=== PATIENT | female | born 1985 | race Caucasian/White ===

== ENCOUNTER 2020-01-25 21:37 | Emergency (ER) | payer SELFPAY ==
--- NOTE | 2020-01-25 21:54 | EDM.PDOC ---
ED HPI GENERAL MEDICAL PROBLEM - General Chief Complaint: ENT Problem Stated Complaint: COLD SYMPTOMS,SORE THROAT Time Seen by Provider: 01/25/20 21:49 Source of Information: Reports: Patient - History of Present Illness INITIAL COMMENTS - FREE TEXT/NARRATIVE: The patient is a 34-year-old female who presents to the ER because she is convinced she has the coronavirus. She has not traveled anywhere, she has not been in contact with any foreigners, but over the last few days she has had a lot of nasal congestion, harsh dry cough and hurts to cough, fevers, generalized myalgias, a sore throat, the left side of her neck is tender. She is also sleeping a lot. No other acute complaints. throat Pain Score (Numeric/FACES): 10 - Related Data Allergies Allergy/AdvReac Type Severity Reaction Status Date / Time Penicillins Allergy Hives Verified 01/25/20 21:46 Home Meds: Home Meds . [No Known Home Meds] 01/25/20 [History] ED ROS ENT - Review of Systems Review Of Systems: See Below (Positive for fevers, positive for myalgias, positive for cough, positive for sinus congestion and drainage, positive for sore throat, all other Positives and pertinent negatives as per HPI. All other pertinent systems were reviewed and are negative) ED EXAM, ENT - Physical Exam Exam: See Below Text/Narrative:: Constitutional: No acute distress, Non-toxic appearance, harsh dry cough and sounds extremely nasally congested. HEENT: Normocephalic, Atraumatic, pupils equal round reactive to light, EOMI, nasal turbinates are congested bilaterally, laryngitis present, oropharynx clear , tongue uvular midline, no oral lesions are noted, no retropharyngeal or peritonsillar abscess, tongue uvular midline Neck: Normal range of motion, No stridor, trachea midline, minimal lymphadenopathy at the left anterior cervical chain Respiratory: No respiratory distress, No tachypnea, lungs are clear without wheezes, rales or rhonchi Cardiovascular: Regular rate and rhythm Gastrointestinal: Deferred Genital / Urinary: Deferred Musculoskeletal: All four extremities present and atraumatic Back: FROM Integument: Warm, Dry, Color is ethnicity appropriate, No rash. Neuro: Alert, Awake, No focal deficits noted Psych: Affect, Judgement, mood normal Course - Vital Signs Text/Narrative:: History and exam are consistent with a viral syndrome. Education was provided and the patient will be given a prescription for Tessalon Perles. Last Recorded V/S: Last Vital Signs Temp 35.8 C L 01/25/20 21:41 Pulse 98 01/25/20 21:41 Resp 20 01/25/20 21:41 BP 104/77 01/25/20 21:41 Pulse Ox 99 01/25/20 21:41 Departure - Departure Time of Disposition: 21:53 Disposition: Home, Self-Care 01 Condition: Good Clinical Impression: Viral syndrome - Discharge Information Referrals: PCP,None [Primary Care Provider] - Additional Instructions: VIRAL SYNDROME This appears to be a viral syndrome. They are highly common and variable, causing fevers, colds, coughs, headaches, vomiting, diarrhea, etc. Antibiotics don't work on viruses, and they need to run their course. On average these last 7-10 days, depending upon the virus. There are some that even last up to several weeks. Rest, drink plenty of clear fluids, especially water. You want our urine to be clear to a light yellow. Ibuprofen 800 mg and Tylenol 1000 mg may be taken at the same time every 6 hours as needed for fevers and discomfort. Upper respiratory congestion and sore throats can be improved with cool liquids , humidifiers, cough drops with menthol, honey, tea with honey, and over-the- counter decongestants. Return to the ER if you develop difficulty breathing, or any other concerns. Sepsis Event Note - Evaluation Sepsis Screening Result: No Definite Risk - Focused Exam Vital Signs: Vital Signs Temp Pulse Resp BP Pulse Ox 01/25/20 21:41 35.8 C L 98 20 104/77 99 Date Exam was Performed: 01/25/20 Time Exam was Performed: 21:48
== END 2020-01-25 22:02 | disposition home or self-care (01) ==
LOC: MW.ED 21:37
CPT/HCPCS: 99282; 99283

== ENCOUNTER 2020-09-28 22:26 | Emergency (ER) | payer OTHER ==
[2020-09-29] MEDS ORDERED: Acetaminophen/HYDROcodone 325-5 MG Tab PO ONE (00:04)
[2020-09-29] MEDS ORDERED: Lidocaine 5% Oint 35.44 GM Tube TOP ONE (00:04)
[2020-09-29] MEDS ORDERED: Lidocaine 2% Jelly 30 ML Tube SCH (00:45)
--- NOTE | 2020-09-29 04:58 | EDM.PDOC ---
ED HPI GENERAL MEDICAL PROBLEM - General Chief Complaint: Back Pain or Injury Stated Complaint: BACK PAIN Time Seen by Provider: 09/28/20 23:30 - History of Present Illness INITIAL COMMENTS - FREE TEXT/NARRATIVE: CHIEF COMPLAINT(S): Back pain HISTORY OF PRESENT ILLNESS: This is a 34-year-old woman without any significant past medical history who comes to the emergency department with a chief complaint of back pain. 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 She denies any injury except for lifting this entertainment center. She denies any urinary incontinence, bowel incontinence, decrease sensation when wiping after using restroom, fever, chills, history of IV drug use. She states that she has never had pain like this before. She denies any numbness or tingling of her lower extremities and is able to ambulate however she does have pain in her lower back. She denies any abdominal pain, chest pain, shortness of breath. She denies any other injury. She states that she took Tylenol without any relief. REVIEW OF SYSTEMS: Constitutional: Denies fever, chills. Eyes: Denies eye pain Ears, Nose, Mouth, & Throat: Denies earache Cardiovascular: Denies chest pain Respiratory: Denies shortness of breath Gastrointestinal: Denies Nausea, vomiting, diarrhea, hematochezia. Bowel inco ntinence Genitourinary: Denies hematuria urinary incontinence MSK: Positive for lower back pain. Neurological: Denies blurred vision, numbness, tingling, weakness Psychiatric: Denies depression PAST MEDICAL HISTORY: As per history of present illness and as reviewed below otherwise noncontributory. SURGICAL HISTORY: As per history of present illness and as reviewed below otherwise noncontributory. LMP: September 07, 2020 SOCIAL HISTORY: As per history of present illness and as reviewed below otherwise noncontributory. FAMILY HISTORY: As per history of present illness and as reviewed below o therwise noncontributory. EXAMINATION OF ORGAN SYSTEMS/BODY AREAS: Constitutional: Blood pressure was 130/70, heart rate 107, respiratory rate 16 with an oxygen saturation 97% on room air. Temperature 36.2 General: Overall well-appearing woman who is in no acute distress. Psychiatric: Appropriate mood and affect. Eyes: No scleral icterus or conjunctival erythema ENMT: Moist mucous membranes. No pharyngeal erythema Cardiovascular: Regular, rate, and rhythm. No gallops, murmurs, or rubs. Bilateral upper extremity pulses symmetric and intact. No peripheral edema. No JVD. Respiratory: Lungs clear to auscultation bilaterally. No wheezes, rales, or rhonchi. Gastrointestinal: Soft, non-tender, non-distended. Normoactive bowel sounds Genitourinary: No suprapubic tenderness Musculoskeletal: Normal range of motion. There is no cervical, thoracic, or lumbar midline spinal tenderness. There is paraspinal tenderness in the lumbar region and along the sacroiliac joints. There was negative straight leg and cross leg test. The patient does have distal sensation between the toes distally, along the heel and laterally. Patient has full range of motion of her lower extremities and is able to ambulate. Skin: No lesions or abrasions. Neurological: Alert, GCS 15 strength and sensation grossly intact MEDICAL DECISION MAKING AND COURSE IN THE ED WITH INTERPRETATION/REVIEW OF DIAG NOSTIC STUDIES: This is a 34-year-old woman and without any significant past medical history who comes to the emergency department with lower lumbar back pain along the sacroiliac joints who overall appears well and has no red flag symptoms. At this time I did discuss with patient I would like to get a lumbar spine and sacroiliac joint x-ray. I discussed with her that I did provide her with lidocaine cream and a tablet of [place]. We will obtain a hCG prior to imaging. While taking care of a critical care patient, the RN notified me that the patient had left without completing treatment. I was unable to speak to the patient prior to the patient leaving. DISPOSITION: The patient left without completing treatment CONDITION: Fair PROCEDURES: None FINAL IMPRESSION(S)/DIAGNOSES: 1. Acute lower back pain Ranjit Chen M.D. Lower Back Pain Score (Numeric/FACES): 6 - Related Data Allergies Allergy/AdvReac Type Severity Reaction Status Date / Time Penicillins Allergy Hives Verified 09/28/20 23:22 Home Meds: Home Meds . 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: Psychiatric History: Reports: Bipolar - Infectious Disease History Infectious Disease History: Reports: Chicken Pox - Past Surgical History HEENT Surgical History: Reports: Adenoidectomy, Tonsillectomy Female Surgical History: Reports: Section Social & Family History - Family History Family Medical History: Noncontributory - Caffeine Use Caffeine Use: Reports: Coffee, Energy Drinks, Soda - Recreational Drug Use Recreational Drug Use: Yes Drug Use in Last 12 Months: No Recreational Drug Type: Reports: Marijuana/Hashish ED ROS GENERAL - Review of Systems Review Of Systems: See Below ED EXAM, GENERAL - Physical Exam Exam: See Below Course - Vital Signs Last Recorded V/S: Last Vital Signs Temp 36.2 C 09/28/20 23:19 Pulse 107 H 09/28/20 23:19 Resp 16 09/28/20 23:19 BP 130/70 09/28/20 23:19 Pulse Ox 97 09/28/20 23:19 - Orders/Labs/Meds Labs: Laboratory Tests 09/29/20 Range/Units 00:20 Urine HCG, Qual NEGATIVE (NEGATIVE) Meds: Medications Discontinued Medications Generic Name Dose Route Start Last Admin Trade Name Freq PRN Reason Stop Dose Admin Hydrocodone Bitart/Acetaminophen 1 tab 09/29/20 00:04 09/29/20 00:11 [place] 325-5 Mg PO 09/29/20 00:05 1 tab ONETIME ONE Administration Lidocaine HCl 50 gm 09/29/20 00:04 09/29/20 00:35 Lidocaine 5% TOP 09/29/20 00:05 Not Given ONETIME ONE Lidocaine HCl 5 ml 09/29/20 00:45 09/29/20 00:41 Xylocaine 2% Jelly .XX 1 applic ASDIRECTED MEHREEN Administration Departure - Departure Time of Disposition: 01:12 Disposition: Eloped 07 Condition: Fair Clinical Impression: Back pain Qualifiers: Back pain location: low back pain Chronicity: acute Back pain laterality: bilateral Sciatica presence: without sciatica Qualified Code(s): M54.5 - Low back pain - Discharge Information *PRESCRIPTION DRUG MONITORING PROGRAM REVIEWED*: No *COPY OF PRESCRIPTION DRUG MONITORING REPORT IN PATIENT VIRI: No Referrals: Collin Maloney MD [Primary Care Provider] - Forms: ED Department Discharge Sepsis Event Note (ED) - Evaluation Sepsis Screening Result: No Definite Risk - Focused Exam Vital Signs: Vital Signs Temp Pulse Resp BP Pulse Ox 09/28/20 23:19 36.2 C 107 H 16 130/70 97
== END 2020-09-29 01:12 | disposition left against medical advice (07) ==
LOC: MW.ED 22:26
DX: M54.5 Low back pain (principal); Z88.0 Allergy status to penicillin
CPT/HCPCS: 81025; 99283; A9270

== ENCOUNTER 2020-10-04 13:57 | Emergency (ER) | payer OTHER | END 2020-10-04 19:25 | disposition left against medical advice (07) | LOC: MW.ED 13:57 | DX: Z53.21 Procedure and treatment not carried out due to patient leaving prior to being seen by health care provider (principal) ==

== ENCOUNTER 2020-10-07 04:11 | Emergency (ER) | payer OTHER ==
[2020-10-07] MEDS ORDERED: predniSONE 20 MG Tab PO ONE (04:44)
[2020-10-07] MEDS ORDERED: Diazepam 2 MG Tab PO ONE (04:44)
--- NOTE | 2020-10-07 04:50 | EDM.PDOC ---
ED HPI GENERAL MEDICAL PROBLEM - General Chief Complaint: Back Pain or Injury Stated Complaint: BACK PAIN Time Seen by Provider: 10/07/20 04:44 - History of Present Illness INITIAL COMMENTS - FREE TEXT/NARRATIVE: History of present illness: [] The patient is lifting her entertainment center to move it 7 days ago and she felt a pop in her right back and has severe pain since. Worse with movement. Is better when she still. It is sharp. It radiates down her right leg and she has feeling she has a herniated disc. She had prior neck injury and chronic numbness in her upper extremities. Review of systems: As per history of present illness and below otherwise all systems reviewed and negative. Past medical history: As per history of present illness and as reviewed below otherwise noncontributory. Surgical history: As per history of present illness and as reviewed below otherwise noncontributory. Social history: No reported history of drug or alcohol abuse. Family history: As per history of present illness and as reviewed below otherwise noncontributory. Physical exam: Constitutional - well developed, well-nourished and in no acute distress HEENT - normocephalic, no evidence of trauma - external nose and mouth normal - no mass in neck and no JVD - mucosae moist EYES - full EOM, PERRL, no icterus - no evidence of inflammation, injection, or drainage Respiratory - no respiratory distress, equal bilateral expansion Musculoskeletal -tender in the right paraspinous muscles in the lower lumbar area straight leg raise right causes pain in the right side of her back straight leg raise left because of pain in the center of her back no gross deformity of long bones or joints -there was no tenderness, swelling or edema Neurologic - Alert and oriented times four - CN II-XII grossly intact - motor se nsory and coordination symmetrically normal Psychiatric - appropriate mood and affect with normal thought content Hematologic - No petechiae or purpura - mucosa appropriate color and sclera not pale - normal nail bed color and refill Integument - no rash or evidence of trauma - normal turgor Diagnostics: [] Therapeutics: [] Impression: [] Plan: [] Definitive disposition and diagnosis as appropriate pending reevaluation and review of above. lower back Pain Score (Numeric/FACES): 5 - Related Data Allergies Allergy/AdvReac Type Severity Reaction Status Date / Time ketorolac [From Toradol] Allergy Tachycardia Verified 10/07/20 04:35 Penicillins Allergy Hives Verified 09/28/20 23:22 tramadol Allergy Tachycardia Verified 10/07/20 04:35 Home Meds: Home Meds diazePAM [Valium] 5 mg PO TID PRN #15 tab 10/07/20 [Rx] methylPREDNISolone [Medrol Dose Pack] 4 mg PO DAILY #21 tab 10/07/20 [Rx] Past Medical History - Past Health History Medical/Surgical History: Denies Medical/Surgical History Cardiovascular History: Reports: None Respiratory History: Reports: None Genitourinary History: Reports: None [facility] History: Reports: Musculoskeletal History: Reports: None Neurological History: Reports: None Psychiatric History: Reports: Bipolar Endocrine/Metabolic History: Reports: None Oncologic (Cancer) History: Reports: None Dermatologic History: Reports: None - Infectious Disease History Infectious Disease History: Reports: Chicken Pox - Past Surgical History Head Surgeries/Procedures: Reports: None HEENT Surgical History: Reports: Adenoidectomy, Tonsillectomy GI Surgical History: Reports: Appendectomy Female Surgical History: Reports: Section Social & Family History - Family History Family Medical History: No Pertinent Family History - Tobacco Use Tobacco Use Status *Q: Current Every Day Tobacco User Years of Tobacco use: 13 Packs/Tins Daily: 1 - Caffeine Use Caffeine Use: Reports: Coffee, Energy Drinks, Soda - Recreational Drug Use Recreational Drug Use: Yes Recreational Drug Type: Reports: Marijuana/Hashish ED ROS GENERAL - Review of Systems Review Of Systems: Comprehensive ROS is negative, except as noted in HPI. ED EXAM, GENERAL - Physical Exam Exam: See Below Free Text/Narrative:: The physical exam is in the HPI Course - Vital Signs Last Recorded V/S: Last Vital Signs Temp 36.3 C 10/07/20 04:35 Pulse 125 H 10/07/20 04:35 Resp 18 10/07/20 04:35 BP 125/66 10/07/20 04:35 Pulse Ox 98 10/07/20 04:35 - Orders/Labs/Meds Orders: Active Orders 24 hr Category Date Time Status diazePAM [Valium] Med 10/07/20 04:44 Once 5 mg PO ONETIME ONE predniSONE Med 10/07/20 04:44 Once 60 mg PO ONETIME ONE Departure - Departure Time of Disposition: 05:10 Disposition: Home, Self-Care 01 Condition: Good Clinical Impression: Low back strain - Discharge Information Instructions: Lumbosacral Strain Referrals: Collin Maloney MD [Primary Care Provider] - Additional Instructions: If you have excruciating pain it is getting worse or you lose control of your bowel bladder or movement or sensation in your lower extremities you should be seen. If the latter happen you should be seen immediately in the emergency room otherwise follow-up with primary care or orthopedics and have an MRI if you are getting worse. [facility] - [facility] [address], [address] [place] [address] The following information is given to patients seen in the emergency department who are being discharged to home. This information is to outline your options for follow-up care. We provide all patients seen in our emergency department with a follow-up referral. The need for follow-up, as well as the timing and circumstances, are variable depending upon the specifics of your emergency department visit. If you don't have a primary care physician on staff, we will provide you with a referral. We always advise you to contact your personal physician following an emergency department visit to inform them of the circumstance of the visit and for follow-up with them and/or the need for any referrals to a consulting specialist. The emergency department will also refer you to a specialist when appropriate. This referral assures that you have the opportunity for follow-up care with a specialist. All of these measure are taken in an effort to provide you with optimal care, which includes your follow-up. Under all circumstances we always encourage you to contact your private physician who remains a resource for coordinating your care. When calling for follow-up care, please make the office aware that this follow-up is from your recent emergency room visit. If for any reason you are refused follow-up, please contact the [facility] Emergency Department at and asked to speak to the emergency department charge nurse. Sepsis Event Note (ED) - Evaluation Sepsis Screening Result: No Definite Risk - Focused Exam Vital Signs: Vital Signs Temp Pulse Resp BP Pulse Ox 10/07/20 04:35 36.3 C 125 H 18 125/66 98 - My Orders Last 24 Hours: My Active Orders 10/07/20 04:44 diazePAM [Valium] 5 mg PO ONETIME ONE predniSONE 60 mg PO ONETIME ONE - Assessment/Plan Last 24 Hours: My Active Orders 10/07/20 04:44 diazePAM [Valium] 5 mg PO ONETIME ONE predniSONE 60 mg PO ONETIME ONE
== END 2020-10-07 05:04 | disposition home or self-care (01) ==
LOC: MW.ED 04:11
DX: S39.012A Strain of muscle, fascia and tendon of lower back, initial encounter (principal); F17.210 Nicotine dependence, cigarettes, uncomplicated; Z88.6 Allergy status to analgesic agent; Z88.5 Allergy status to narcotic agent; Z88.0 Allergy status to penicillin; X58.XXXA Exposure to other specified factors, initial encounter
CPT/HCPCS: 99283; A9270; 99282

== ENCOUNTER 2020-11-25 07:35 | Emergency (ER) | payer SELFPAY ==
[2020-11-25] MEDS ORDERED: OLANZapine 5 MG Tab PO ONE (07:42)
--- NOTE | 2020-11-25 07:48 | EDM.PDOC ---
ED HPI GENERAL MEDICAL PROBLEM - General Time Seen by Provider: 11/25/20 07:40 - History of Present Illness INITIAL COMMENTS - FREE TEXT/NARRATIVE: Patient is a 35-year-old female with a history of extensive chronic pain issues currently smokes weed but takes no regular medications. She has a history of bipolar disorder and has had an episode of self-harm and suicide attempt in the past a couple years ago. Patient states tearfully that she is tired of being miserable in pain and pain all the time this morning she "went off" on her felt like if she were she would not be in pain anymore and so she intentionally cut her left wrist with the goal of taking her life. 911 was called by family. Police and EMS arrived and the patient was initially quite uncooperative and combative but on arrival to the ER here is calm, though tearful, and cooperative. She reports ongoing issues with chronic pain in her back her face and her shoulder but denies any other medical complaints. general Pain Score (Numeric/FACES): 8 - Related Data Allergies Allergy/AdvReac Type Severity Reaction Status Date / Time ketorolac [From Toradol] Allergy Tachycardia Verified 11/25/20 07:50 Penicillins Allergy Hives Verified 11/25/20 07:50 tramadol Allergy Tachycardia Verified 11/25/20 07:50 Home Meds: Home Meds . 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: Musculoskeletal History: Reports: None Neurological History: Reports: None Psychiatric History: Reports: Bipolar Endocrine/Metabolic History: Reports: None Oncologic (Cancer) History: Reports: None Dermatologic History: Reports: None - Infectious Disease History Infectious Disease History: Reports: Chicken Pox - Past Surgical History Head Surgeries/Procedures: Reports: None HEENT Surgical History: Reports: Adenoidectomy, Tonsillectomy GI Surgical History: Reports: Appendectomy Female Surgical History: Reports: Section Social & Family History - Family History Family Medical History: No Pertinent Family History - Caffeine Use Caffeine Use: Reports: Coffee, Energy Drinks, Soda ED ROS GENERAL - Review of Systems Review Of Systems: See Below Free Text/Narrative/Comment: General: No fever. Skin: No rash. Eyes: No vision problems. ENT: No sore throat. Neck: No neck stiffness. Respiratory: No shortness of breath. Cardiac: No chest pain. Gastrointestinal: No nausea, vomiting or abdominal pain. Psych: Per HPI Musculoskeletal: Per HPI Neurologic: No headache. ED EXAM, GENERAL - Physical Exam Exam: See Below Free Text/Narrative:: General Appearance: No acute distress, appears comfortable Skin: No rash HEENT: Normocephalic/atraumatic, sclera anicteric, mucous membranes moist Neck: Normal range of motion Chest and Lungs: Normal work of breathing Cardiovascular: Intact distal perfusion Musculoskeletal: 5 cm laceration of the anterior aspect of the left wrist essentially overlying the proximal wrist crease no tendon exposure no active bleeding sensation in the hand is intact there is a 2+ distal radial pulse strength in all digits in the hand is intact Neurologic: Awake, alert, no obvious deficits, moving all extremities Psychiatric: Tearful, depressed mood, appropriate affect, normal eye contact ED GENERAL MEDICAL PROCEDURES - Additional/Other Procedure(s) Other (Free Text) Procedure(s): Laceration Repair Procedure Location: Left anterior wrist Length: 5 cm Suture size and type: 5-0 nylon Number of sutures: 9 Complexity: Simple Time out: Yes, confirmed patient, place, procedure correct Consent: Verbal Suture technique: Simple interrupted Procedure: The wound was irrigated copiously with normal saline or sterile water. Close inspection revealed no evidence for retained foreign bodies. Anesthesia was achieved using lidocaine. Sutures were placed using the above technique with approximation of the wound edges. Sterile dressing was applied to the closed wound. Complications: None Performed by: Woo Vaughan MD #1 Interpretation EKG Date: 11/25/20 Time: 07:50 EKG Interpretation Comments: Normal sinus rhythm rate of 77 normal intervals and axis QTC 411 no acute ischemia Course - Vital Signs Last Recorded V/S: Last Vital Signs Temp 98.7 F 11/25/20 07:37 Pulse 89 11/25/20 09:07 Resp 20 11/25/20 09:07 BP 136/76 11/25/20 09:07 Pulse Ox 97 11/25/20 09:07 - Orders/Labs/Meds Orders: Active Orders 24 hr Category Date Time Status EKG Documentation Completion [RC] STAT Care 11/25/20 07:42 Active COVID-19/FLU A+B [MOLEC] Stat Lab 11/25/20 08:48 Received Labs: Laboratory Tests 11/25/20 11/25/20 11/25/20 Range/Units 07:45 07:45 08:27 WBC 10.31 (4.0-11.0) K/uL RBC 5.10 (4.30-5.90) M/uL Hgb 14.3 (12.0-16.0) g/dL Hct 43.3 (36.0-46.0) % MCV 84.9 (80.0-98.0) fL MCH 28.0 (27.0-32.0) pg MCHC 33.0 (31.0-37.0) g/dL RDW Std Deviation 41.3 (28.0-62.0) fl RDW Coeff of Alvin 13 (11.0-15.0) % Plt Count 266 (150-400) K/uL MPV 10.70 (7.40-12.00) fL Neut % (Auto) 56.4 (48.0-80.0) % Lymph % (Auto) 33.0 (16.0-40.0) % Terry % (Auto) 6.7 (0.0-15.0) % Eos % (Auto) 3.1 (0.0-7.0) % Baso % (Auto) 0.8 (0.0-1.5) % Neut # (Auto) 5.8 H (1.4-5.7) K/uL Lymph # (Auto) 3.4 H (0.6-2.4) K/uL Terry # (Auto) 0.7 (0.0-0.8) K/uL Eos # (Auto) 0.3 (0.0-0.7) K/uL Baso # (Auto) 0.1 (0.0-0.1) K/uL Nucleated RBC % 0.0 /100WBC Nucleated RBCs # 0 K/uL Sodium 138 (136-145) mmol/L Potassium 3.9 (3.5-5.1) mmol/L Chloride 104 (98-107) mmol/L Carbon Dioxide 25.9 (21.0-32.0) mmol/L BUN 11 (7.0-18.0) mg/dL Creatinine 1.0 (0.6-1.0) mg/dL Est Cr Clr Drug Dosing 83.62 mL/min Estimated GFR (MDRD) > 60.0 ml/min Glucose 93 (74-106) mg/dL Calcium 9.3 (8.5-10.1) mg/dL Total Bilirubin 0.4 (0.2-1.0) mg/dL AST 10 L (15-37) IU/L ALT 15 (14-63) IU/L Alkaline Phosphatase 49 (46-116) U/L Total Protein 6.7 (6.4-8.2) g/dL Albumin 3.7 (3.4-5.0) g/dL Globulin 3.0 (2.6-4.0) g/dL Albumin/Globulin Ratio 1.2 (0.9-1.6) Urine HCG, Qual NEGATIVE (NEGATIVE) Urine Opiates Screen (NEGATIVE) Ur Oxycodone Screen (NEGATIVE) Urine Methadone Screen (NEGATIVE) Ur Barbiturates Screen (NEGATIVE) Ur Phencyclidine Scrn (NEGATIVE) Ur Amphetamine Screen (NEGATIVE) U Methamphetamines Scrn (NEGATIVE) U Benzodiazepines Scrn (NEGATIVE) U Cocaine Metab Screen (NEGATIVE) U Marijuana (THC) Screen (NEGATIVE) Ethyl Alcohol < 3.0 mg/dL 11/25/20 Range/Units 08:27 WBC (4.0-11.0) K/uL RBC (4.30-5.90) M/uL Hgb (12.0-16.0) g/dL Hct (36.0-46.0) % MCV (80.0-98.0) fL MCH (27.0-32.0) pg MCHC (31.0-37.0) g/dL RDW Std Deviation (28.0-62.0) fl RDW Coeff of Alvin (11.0-15.0) % Plt Count (150-400) K/uL MPV (7.40-12.00) fL Neut % (Auto) (48.0-80.0) % Lymph % (Auto) (16.0-40.0) % Terry % (Auto) (0.0-15.0) % Eos % (Auto) (0.0-7.0) % Baso % (Auto) (0.0-1.5) % Neut # (Auto) (1.4-5.7) K/uL Lymph # (Auto) (0.6-2.4) K/uL Terry # (Auto) (0.0-0.8) K/uL Eos # (Auto) (0.0-0.7) K/uL Baso # (Auto) (0.0-0.1) K/uL Nucleated RBC % /100WBC Nucleated RBCs # K/uL Sodium (136-145) mmol/L Potassium (3.5-5.1) mmol/L Chloride (98-107) mmol/L Carbon Dioxide (21.0-32.0) mmol/L BUN (7.0-18.0) mg/dL Creatinine (0.6-1.0) mg/dL Est Cr Clr Drug Dosing mL/min Estimated GFR (MDRD) ml/min Glucose (74-106) mg/dL Calcium (8.5-10.1) mg/dL Total Bilirubin (0.2-1.0) mg/dL AST (15-37) IU/L ALT (14-63) IU/L Alkaline Phosphatase (46-116) U/L Total Protein (6.4-8.2) g/dL Albumin (3.4-5.0) g/dL Globulin (2.6-4.0) g/dL Albumin/Globulin Ratio (0.9-1.6) Urine HCG, Qual (NEGATIVE) Urine Opiates Screen POSITIVE (NEGATIVE) Ur Oxycodone Screen NEGATIVE (NEGATIVE) Urine Methadone Screen NEGATIVE (NEGATIVE) Ur Barbiturates Screen NEGATIVE (NEGATIVE) Ur Phencyclidine Scrn NEGATIVE (NEGATIVE) Ur Amphetamine Screen NEGATIVE (NEGATIVE) U Methamphetamines Scrn POSITIVE (NEGATIVE) U Benzodiazepines Scrn NEGATIVE (NEGATIVE) U Cocaine Metab Screen NEGATIVE (NEGATIVE) U Marijuana (THC) Screen POSITIVE (NEGATIVE) Ethyl Alcohol mg/dL Meds: Medications Discontinued Medications Generic Name Dose Route Start Last Admin Trade Name Freq PRN Reason Stop Dose Admin Diphenhydramine HCl 50 mg 11/25/20 08:48 11/25/20 08:55 Benadryl IM 11/25/20 08:49 50 mg ONETIME ONE Administration Haloperidol Lactate 10 mg 11/25/20 08:48 11/25/20 08:54 Haldol IM 01/02/21 08:49 10 mg ONETIME ONE Administration Lidocaine/Epinephrine 20 ml 11/25/20 07:51 11/25/20 07:59 Xylocaine 1% With Epinephrine 1:100,000 INJECT 11/25/20 07:52 20 ml ONETIME ONE Administration Lorazepam 2 mg 11/25/20 08:48 11/25/20 08:53 Ativan IM 11/25/20 08:49 2 mg ONETIME ONE Administration Olanzapine 5 mg 11/25/20 07:42 11/25/20 07:48 Zyprexa PO 11/25/20 07:43 5 mg ONETIME ONE Administration Departure - Departure Time of Disposition: 09:05 Disposition: DC/Tfer to Psych Hosp/Unit 65 Condition: Fair Clinical Impression: Suicide attempt by cutting of wrist, Laceration of wrist without complication - Discharge Information *PRESCRIPTION DRUG MONITORING PROGRAM REVIEWED*: Not Applicable *COPY OF PRESCRIPTION DRUG MONITORING REPORT IN PATIENT VIRI: Not Applicable Instructions: Sutured Wound Care Referrals: PCP,Unknown [Primary Care Provider] - Additional Instructions: Your stitches need to be removed in 7 days. The following information is given to patients seen in the emergency department who are being discharged to home. This information is to outline your options for follow-up care. We provide all patients seen in our emergency department with a follow-up referral. The need for follow-up, as well as the timing and circumstances, are variable depending upon the specifics of your emergency department visit. If you don't have a primary care physician on staff, we will provide you with a referral. We always advise you to contact your personal physician following an emergency department visit to inform them of the circumstance of the visit and for follow-up with them and/or the need for any referrals to a consulting specialist. The emergency department will also refer you to a specialist when appropriate. This referral assures that you have the opportunity for follow-up care with a specialist. All of these measure are taken in an effort to provide you with optimal care, which includes your follow-up. Under all circumstances we always encourage you to contact your private physician who remains a resource for coordinating your care. When calling for follow-up care, please make the office aware that this follow-up is from your recent emergency room visit. If for any reason you are refused follow-up, please contact the [facility] Emergency Department at and asked to speak to the emergency department charge nurse. Critical Care Note - Critical Care Note Total Time (mins): 45 Comments: Patient presented in acute psychiatric crisis she required multiple interactions for attempted behavior de-escalation she then required restraint and sedation for patient and staff safety. Sepsis Event Note (ED) - Focused Exam Vital Signs: Vital Signs Temp Pulse Resp BP Pulse Ox 11/25/20 09:07 89 20 136/76 97 11/25/20 07:37 98.7 F 82 16 133/89 97 - My Orders Last 24 Hours: My Active Orders 11/25/20 07:42 EKG Documentation Completion [RC] STAT 11/25/20 08:48 COVID-19/FLU A+B [MOLEC] Stat - Assessment/Plan Last 24 Hours: My Active Orders 11/25/20 07:42 EKG Documentation Completion [RC] STAT 11/25/20 08:48 COVID-19/FLU A+B [MOLEC] Stat Assessment:: 35-year-old female presenting with what appears to be a long history of bipolar disorder not currently on medication depression and chronic pain presenting after a suicide attempt cutting her left wrist. There is no sign of deep structure injury. Patient is tearful but appropriate and cooperative here. I offered, and the patient accepted, some medication to help her calm down and we will give a dose of oral Zyprexa. Tetanus status will be updated as needed EKG CBC CMP alcohol level UDS and Covid screen pending and will discuss with them by psychiatric facilities. Given her suicide attempt this morning her ongoing issues with depression and the lack of any current mental health follow-up I think admission for acute psychiatric crisis is appropriate. 0759: Initially the patient nodded agreement to psychiatric transfer. She now says that she does not want to go because she does not need to. "I've been managing my bipolar disorder just fine. I don't need all those medications. They don't help me. That's why I took myself off of all those medications down in [place]." "I just tell them what they want to hear and they let me go." I told the patient that given her suicide attempt this AM she does require psychiatric transfer. She stated that "I understand if that's your policy. Well, I guess there's no point in talking to you anymore." Patient refuses Tdap update. Eye contact now quite poor and patient does not respond to my verbal interaction. 0840: Patient has started to become verbally aggressive towards staff. She has made several threatening moves towards nursing staff. She has ripped out her IV. I have concerns regarding a potential flight risk or injury to staff. PD called to assist. 0850: Patient has become increasingly verbally aggressive she is threatened to leave police had to handcuff her to the bed. She is now attempting to leave she is yelling at police telling multiple people to "shut the fuck up." "Fuck off." "What are you going to fucking do about it?" and similar statements. I am concerned that she is continuing to escalate. She is not responding to multiple attempts to redirect. She is not responding to police standby. I am also concerned that she may further injure herself including dislodging her stitches. For patient and staff safety the patient will be given Haldol, Ativan and Benadryl by IM injection. 0855: The patient's labs are unremarkable. The patient is medically clear for psychiatric transfer. I contacted [facility]. However, they are at capacity. I contacted [facility] and spoke to Dr. Lang. She has accepted the patient for transfer. 0905: The patient had some recurrent bleeding from her left wrist. On reassessment all stitches are intact. Bleeding was controlled. There is a small hematoma that has formed on the ulnar side. This does not require any in tervention and should resorb or drain on it's own. Stitches will need to be removed in 7 days. 0920: The patient is now resting comfortably s/p medications. She is stable for transfer.
[2020-11-25] MEDS ORDERED: Lidocaine 1% with EPINEPHrine 1:100,000 20 ML MDV INJECT ONE (07:51)
[2020-11-25 08:02] LABS: BLOOD UREA NITROGEN,BUN 11 mg/dL (7.0-18.0); CARBON DIOXIDE,CO2 25.9 mmol/L (21.0-32.0); CHLORIDE,CL 104 mmol/L (98-107); GLUCOSE RANDOM 93 mg/dL (74-106); POTASSIUM,K 3.9 mmol/L (3.5-5.1); SODIUM,NA 138 mmol/L (136-145)
[2020-11-25] MEDS ORDERED: LORazepam 2 MG/ML SDV IM ONE (08:48)
[2020-11-25] MEDS ORDERED: Haloperidol Lactate 5 MG/ML SDV IM ONE (08:48)
[2020-11-25] MEDS ORDERED: diphenhydrAMINE 50 MG/ML SDV IM ONE (08:48)
[2020-11-25 09:42] LABS: CORONAVIRUS COVID-19 NAA NEGATIVE (NEGATIVE); INFLUENZA A NAA NEGATIVE (NEGATIVE); INFLUENZA B NAA NEGATIVE (NEGATIVE)
== END 2020-11-25 10:09 ==
LOC: MW.ED 07:35
DX: S61.512A Laceration without foreign body of left wrist, initial encounter (principal); Z88.6 Allergy status to analgesic agent; Z88.5 Allergy status to narcotic agent; Z88.0 Allergy status to penicillin; X78.9XXA Intentional self-harm by unspecified sharp object, initial encounter; F17.290 Nicotine dependence, other tobacco product, uncomplicated
CPT/HCPCS: 0240U; 12002; 36415; 80053; 80179; 80305; 81025; 85025; 93005; 96372; 99285; A9270; J1200; J1630; J2060; 99291

== ENCOUNTER 2021-01-09 13:51 | Emergency (ER) | payer SELFPAY ==
[2021-01-09] MEDS ORDERED: Sodium Chloride 0.9% 1,000 ML IV ONE (13:58)
[2021-01-09] MEDS ORDERED: Morphine 2 MG/ML SYRINGE IVPUSH ONE (13:59)
[2021-01-09] MEDS ORDERED: Ondansetron 4 MG/2 ML SDV IVPUSH ONE (13:59)
--- NOTE | 2021-01-09 14:33 | EDM.PDOC ---
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 Patient states that she has had 11 pregnancies total, including t his 1, and 1 child who has Cruz syndrome. Patient states she has had 9 miscarriages all early on in . Patient states she believes approximately 4-5 weeks and states that she began having suprapubic tenderness this morning. Unsure of LMP and states she is "annoyed" by asking this question. Patient states she has not taken anything for her symptoms. Patient states she did have a little bit of blood on the toilet paper when she went to the bathroom just before EMS brought her here. Patient denies feeling any current bleeding denies any clots. Stats she has an appointment scheduled next week with Dr. Carcamo Patient denies fever, chills, chest pain, shortness of breath, or cough. Denies headache, neck stiff ness, change in vision, syncope, or near syncope. Denies nausea, vomiting, diarrhea, constipation, or dysuria. Has not noted any blood in urine or stool. Patient has been eating and drinking appropriately. Review of systems: As per history of present illness and below otherwise all systems reviewed and negative. Past medical history: As per history of present illness and as reviewed below otherwise noncontributory. Surgical history: As per history of present illness and as reviewed below otherwise noncontributory. Social history: See social history for further information Family history: As per history of present illness and as reviewed below otherwise noncontributory. Physical exam: General: Patient is alert, oriented, and in no acute distress. Patient sitting on exam table, holding lower abdomen appearing uncomfortable. Vitals stable and reviewed by me. HEENT: Atraumatic, normocephalic, pupils equal and reactive bilaterally, negative for conjunctival pallor or scleral icterus, mucous membranes moist, TMs normal bilaterally, throat clear, neck supple, nontender, trachea midline. No drooling or trismus noted. No meningeal signs. No hot potato voice noted. Lungs: Clear to auscultation, breath sounds equal bilaterally, chest nontender. Heart: S1S2, regular rate and rhythm without overt murmur Abdomen: Exam of abdomen limited due to pain. Generalized severe pain to palpation of abdomen. Otherwise, soft, nondistended. Negative for masses or hepatosplenomegaly. Negative for costovertebral tenderness. Pelvis: Stable nontender. Genitourinary: Deferred. Rectal: Deferred. Skin: Scarring on bilateral forearms noted, consistent with appearance of self cutting. Otherwise, Intact, warm, dry. No lesions or rashes noted. Extremities: Atraumatic, negative for cords or calf pain. Neurovascular unremarkable. Neuro: Awake, alert, oriented. Cranial nerves II through XII unremarkable. Cerebellum unremarkable. Motor and sensory unremarkable throughout. Exam nonfocal. Notes: I called and spoke to the AUTOMAT WATCHER on-call, Dr. Carcamo, and thoroughly discussed patient's case including close review of patients presentation, labwork, and ultrasound report. He states that at this point, the possibility viable vs possible ectopic is not certain and requires an hcg quant to be drawn on (01/11/21) and to follow up with him Friday (01/12/2021). He recommends sending in narcotic pain medication and strict return precautions. Strict return precautions thoroughly discussed with patient and expresses understanding. Discussed the importance for follow up with Dr. Carcamo Friday and repeat labwork . Voices understanding and is agreeable to plan of care. Denies any further questions or concerns at this time. Diagnostics: CBC, CMP, UA, Serum hcg quant, Lipase, TVUS Therapeutics: Morphine, NS, Zofran Prescription: Cal Nev Ari (#6) Impression: Abdominal pain, unspecified, possible ectopic vs. early viable IUP Positive test Plan: 1. You have been provided with a lab prescription to get a repeat lab draw for your hormone. 2. Take medication as prescribed for moderate to severe pain. You can also use Tylenol as directed for pain and discomfort as this is also safe to use in 3. Follow-up with Dr. Carcamo on 01/12/2021 as discussed. Call his clinic to establish an appointment time. 4. Return to the ED as needed and as discussed. Definitive disposition and diagnosis as appropriate pending reevaluation and review of above. Pelvic Pain Score (Numeric/FACES): 10 - Related Data Allergies Allergy/AdvReac Type Severity Reaction Status Date / Time Penicillins Allergy Cannot Verified 01/09/21 13:52 Remember Home Meds: Home Meds Acetaminophen/HYDROcodone [Cal Nev Ari 325-5 MG] 1 tab PO Q6H PRN #6 tablet 01/09/21 [Rx] Vit #113/Iron/Folate [ Chewable Tab] 1 tab PO DAILY 01/09/21 [History] Past Medical History AUTOMAT WATCHER History: Reports: Endometriosis, Polycystic Ovaries, - Infectious Disease History Infectious Disease History: Reports: None Social & Family History - Family History Family Medical History: No Pertinent Family History - Caffeine Use Caffeine Use: Reports: None - Recreational Drug Use Recreational Drug Use: No ED ROS GENERAL - Review of Systems Review Of Systems: Comprehensive ROS is negative, except as noted in HPI. ED EXAM, GENERAL - Physical Exam Exam: See Below (see dictation) Course - Vital Signs Last Recorded V/S: Last Vital Signs Temp Pulse 74 01/09/21 14:53 Resp 22 H 01/09/21 14:53 BP 125/65 01/09/21 14:53 Pulse Ox 99 01/09/21 14:53 - Orders/Labs/Meds Orders: Active Orders 24 hr Category Date Time Status UA RFX ROMMEL AND CULT IF INDIC [URIN] Stat Lab 01/09/21 13:56 Ordered Labs: Laboratory Tests 01/09/21 01/09/21 01/09/21 Range/Units 13:50 13:50 13:50 WBC 14.44 H (4.0-11.0) K/uL RBC 5.01 (4.30-5.90) M/uL Hgb 14.3 (12.0-16.0) g/dL Hct 42.4 (36.0-46.0) % MCV 84.6 (80.0-98.0) fL MCH 28.5 (27.0-32.0) pg MCHC 33.7 (31.0-37.0) g/dL RDW Std Deviation 42.1 (28.0-62.0) fl RDW Coeff of Alvin 14 (11.0-15.0) % Plt Count 281 (150-400) K/uL MPV 10.80 (7.40-12.00) fL Neut % (Auto) 89.1 H (48.0-80.0) % Lymph % (Auto) 9.1 L (16.0-40.0) % [place] % (Auto) 1.7 (0.0-15.0) % Eos % (Auto) 0.0 (0.0-7.0) % Baso % (Auto) 0.1 (0.0-1.5) % Neut # (Auto) 12.9 H (1.4-5.7) K/uL Lymph # (Auto) 1.3 (0.6-2.4) K/uL [place] # (Auto) 0.2 (0.0-0.8) K/uL Eos # (Auto) 0.0 (0.0-0.7) K/uL Baso # (Auto) 0.0 (0.0-0.1) K/uL Nucleated RBC % 0.0 /100WBC Nucleated RBCs # 0 K/uL Lactate (0.20-2.00) mmol/L Sodium 139 (136-145) mmol/L Potassium 4.0 (3.5-5.1) mmol/L Chloride 104 (98-107) mmol/L Carbon Dioxide 21.6 (21.0-32.0) mmol/L BUN 14 (7.0-18.0) mg/dL Creatinine 0.8 (0.6-1.0) mg/dL Est Cr Clr Drug Dosing 97.27 mL/min Estimated GFR (MDRD) > 60.0 ml/min Glucose 124 H (74-106) mg/dL Calcium 9.6 (8.5-10.1) mg/dL Total Bilirubin 0.5 (0.2-1.0) mg/dL AST 10 L (15-37) IU/L ALT 19 (14-63) IU/L Alkaline Phosphatase 45 L (46-116) U/L Total Protein 7.1 (6.4-8.2) g/dL Albumin 3.8 (3.4-5.0) g/dL Globulin 3.3 (2.6-4.0) g/dL Albumin/Globulin Ratio 1.2 (0.9-1.6) Lipase (73-393) U/L HCG, Qual (NEG) HCG, Quant 1617.0 mIU/mL Blood Type A POSITIVE 01/09/21 01/09/21 01/09/21 Range/Units 13:50 13:50 14:14 WBC (4.0-11.0) K/uL RBC (4.30-5.90) M/uL Hgb (12.0-16.0) g/dL Hct (36.0-46.0) % MCV (80.0-98.0) fL MCH (27.0-32.0) pg MCHC (31.0-37.0) g/dL RDW Std Deviation (28.0-62.0) fl RDW Coeff of Alvin (11.0-15.0) % Plt Count (150-400) K/uL MPV (7.40-12.00) fL Neut % (Auto) (48.0-80.0) % Lymph % (Auto) (16.0-40.0) % [place] % (Auto) (0.0-15.0) % Eos % (Auto) (0.0-7.0) % Baso % (Auto) (0.0-1.5) % Neut # (Auto) (1.4-5.7) K/uL Lymph # (Auto) (0.6-2.4) K/uL [place] # (Auto) (0.0-0.8) K/uL Eos # (Auto) (0.0-0.7) K/uL Baso # (Auto) (0.0-0.1) K/uL Nucleated RBC % /100WBC Nucleated RBCs # K/uL Lactate 1.0 (0.20-2.00) mmol/L Sodium (136-145) mmol/L Potassium (3.5-5.1) mmol/L Chloride (98-107) mmol/L Carbon Dioxide (21.0-32.0) mmol/L BUN (7.0-18.0) mg/dL Creatinine (0.6-1.0) mg/dL Est Cr Clr Drug Dosing mL/min Estimated GFR (MDRD) ml/min Glucose (74-106) mg/dL Calcium (8.5-10.1) mg/dL Total Bilirubin (0.2-1.0) mg/dL AST (15-37) IU/L ALT (14-63) IU/L Alkaline Phosphatase (46-116) U/L Total Protein (6.4-8.2) g/dL Albumin (3.4-5.0) g/dL Globulin (2.6-4.0) g/dL Albumin/Globulin Ratio (0.9-1.6) Lipase 65 L (73-393) U/L HCG, Qual POSITIVE H (NEG) HCG, Quant mIU/mL Blood Type Meds: Medications Discontinued Medications Generic Name Dose Route Start Last Admin Trade Name Freq PRN Reason Stop Dose Admin Sodium Chloride 1,000 mls @ 999 mls/hr 01/09/21 13:58 01/09/21 14:49 Normal Saline IV 01/09/21 14:58 999 mls/hr STAT ONE Administration Morphine Sulfate 2 mg 01/09/21 13:59 01/09/21 14:49 Morphine IVPUSH 01/09/21 14:00 2 mg ONETIME ONE Administration Ondansetron HCl 4 mg 01/09/21 13:59 01/09/21 14:49 Zofran IVPUSH 01/09/21 14:00 4 mg ONETIME ONE Administration Departure - Departure Time of Disposition: 15:44 Disposition: Home, Self-Care 01 Clinical Impression: Positive test Abdominal pain Qualifiers: Abdominal location: left lower quadrant Qualified Code(s): R10.32 - Left lower quadrant pain - Discharge Information Prescriptions: Acetaminophen/HYDROcodone [Cal Nev Ari 325-5 MG] 1 tab PO Q6H PRN #6 tablet PRN Reason: Pain (Severe 7-10) Instructions: Abdominal Pain During , [id number] Referrals: PCP,None [Primary Care Provider] - Forms: ED Department Discharge Additional Instructions: The following information is given to patients seen in the emergency department who are being discharged to home. This information is to outline your options for follow-up care. We provide all patients seen in our emergency department with a follow-up referral. The need for follow-up, as well as the timing and circumstances, are variable depending upon the specifics of your emergency department visit. If you don't have a primary care physician on staff, we will provide you with a referral. We always advise you to contact your personal physician following an emergency department visit to inform them of the circumstance of the visit and for follow-up with them and/or the need for any referrals to a consulting s pecialist. The emergency department will also refer you to a specialist when appropriate. This referral assures that you have the opportunity for follow-up care with a specialist. All of these measure are taken in an effort to provide you with optimal care, which includes your follow-up. Under all circumstances we always encourage you to contact your private physician who remains a resource for coordinating your care. When calling for follow-up care, please make the office aware that this follow-up is from your recent emergency room visit. If for any reason you are refused follow-up, please contact the [facility] Emergency Department at and asked to speak to the emergency department charge nurse. [facility] Dr. Dona HORTON [address] [place] [id number] 1. You have been provided with a lab prescription to get a repeat lab draw for your hormone. 2. Take medication as prescribed for moderate to severe pain. You can also use Tylenol as directed for pain and discomfort as this is also safe to use in 3. Follow-up with Dr. Carcamo on 01/12/2021 as discussed. Call his clinic to establish an appointment time. 4. Return to the ED as needed and as discussed. Sepsis Event Note (ED) - Evaluation Sepsis Screening Result: No Definite Risk - Focused Exam Vital Signs: Vital Signs Pulse Resp BP Pulse Ox 01/09/21 14:53 74 22 H 125/65 99 01/09/21 13:53 80 26 H 107/56 L 99 - My Orders Last 24 Hours: My Active Orders 01/09/21 13:56 UA RFX ROMMEL AND CULT IF INDIC [URIN] Stat - Assessment/Plan Last 24 Hours: My Active Orders 01/09/21 13:56 UA RFX ROMMEL AND CULT IF INDIC [URIN] Stat
[2021-01-09 14:50] LABS: BLOOD UREA NITROGEN,BUN 14 mg/dL (7.0-18.0); CARBON DIOXIDE,CO2 21.6 mmol/L (21.0-32.0); CHLORIDE,CL 104 mmol/L (98-107); GLUCOSE RANDOM 124 mg/dL (74-106); SODIUM,NA 139 mmol/L (136-145)
--- NOTE | 2021-01-09 15:33 | US ---
INDICATION: Left-sided abdominal pain in early TECHNIQUE: Ultrasound OB pelvis transvaginal. Real-time gentile-scale imaging of the pelvis was performed. COMPARISON: None FINDINGS: No intrauterine gestation identified. Small amount of free fluid in the pelvis. There is a complex hypodense area in the right adnexa measuring 4.8 x 4.4 x 3.8 cm. It is not clear if this is in the adnexa or attached to the ovary. Endometrium measures 1.5 cm in width. The uterus measures 8.1 x4.8 x 4.3 cm. The left ovary measures 1.8 x 2.8 x 5.0 cm. During evaluation of the left ovary and adnexa the patient terminated the exam due to pain. IMPRESSION: Limited exam. Patient terminated the exam due to pain. No intrauterine identified. Limited evaluation of the left ovary and adnexa. There is some free fluid in the pelvis. A left ectopic cannot be excluded with this exam. 4.8 cm complex hypodense lesion in the right adnexa or ovary. This could represent a hemorrhagic cyst, endometrioma, or focal hematoma. Recommend gynecology consultation. Findings discussed with Dr. Agosto at 3:32 p.m. on January 09, 2021. Dictated by Gabi Yeager MD @ Jan 09 2021 3:08PM (Electronically Signed)
== END 2021-01-09 16:02 | disposition home or self-care (01) ==
LOC: MERGE 13:51 → MW.ED 13:51
DX: O99.891 Other specified diseases and conditions complicating pregnancy (principal); R10.32 Left lower quadrant pain; Z88.0 Allergy status to penicillin; Z3A.01 Less than 8 weeks gestation of pregnancy
CPT/HCPCS: 36415; 76801; 80053; 83605; 83690; 84702; 84703; 85025; 86900; 86901; 96374; 96375; 99285; J2270; J2405; J7030; 99283

== ENCOUNTER 2021-02-28 23:04 | Emergency (ER) | payer SELFPAY ==
--- NOTE | 2021-02-28 23:40 | EDM.PDOC ---
ED HPI GENERAL MEDICAL PROBLEM - General Chief Complaint: General Stated Complaint: MEDICAL CLEARANCE Time Seen by Provider: 02/28/21 23:07 - History of Present Illness INITIAL COMMENTS - FREE TEXT/NARRATIVE: History of present illness: [] Patient is going to [facility]. She does not have her medicine with her. She is on a course of Bactrim double strength twice a day for MRSA. She has a draining abscess in the perianal area and a lump in her right neck that is getting better. Review of systems: As per history of present illness and below otherwise all systems reviewed and negative. Past medical history: As per history of present illness and as reviewed below otherwise noncontributory. Surgical history: As per history of present illness and as reviewed below otherwise noncontributory. Social history: No reported history of drug or alcohol abuse. Family history: As per history of present illness and as reviewed below otherwise noncontributory. Physical exam: Constitutional - well developed, well-nourished and in no acute distress HEENT - normocephalic, no evidence of trauma - external nose and mouth normal - no mass in neck and no JVD - mucosae moist EYES - full EOM, PERRL, no icterus - no evidence of inflammation, injection, or drainage Respiratory - no respiratory distress, equal bilateral expansion Musculoskeletal no gross deformity of long bones or joints - no tenderness, swelling or edema Neurologic - Alert and oriented times four - CN II-XII grossly intact - motor sensory and coordination symmetrically normal Psychiatric - appropriate mood and affect with normal thought content Hematologic - No petechiae or purpura - mucosa appropriate color and sclera not pale - normal nail bed color and refill Integument - no rash or evidence of trauma - normal turgor Diagnostics: [] Therapeutics: [] Impression: [] Plan: [] Definitive disposition and diagnosis as appropriate pending reevaluation and review of above. - Related Data Allergies Allergy/AdvReac Type Severity Reaction Status Date / Time ketorolac [From Toradol] Allergy Tachycardia Verified 02/28/21 23:29 Penicillins Allergy Hives Verified 02/28/21 23:29 tramadol Allergy Tachycardia Verified 02/28/21 23:29 Home Meds: Home Meds Sulfamethoxazole/Trimethoprim [Bactrim Ds Tablet] 1 each PO Q12HR #14 tablet 02/28/21 [Rx] Sulfamethoxazole/Trimethoprim [Bactrim Ds Tablet] 1 tab PO BID 02/28/21 [History] Past Medical History - Past Health History Medical/Surgical History: Denies Medical/Surgical History Cardiovascular History: Reports: None Respiratory History: Reports: None Genitourinary History: Reports: None 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: Reports: Endometriosis, Polycystic Ovaries, Other 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: Musculoskeletal History: Reports: None Neurological History: Reports: None Psychiatric History: Reports: Bipolar Endocrine/Metabolic History: Reports: None Oncologic (Cancer) History: Reports: None Dermatologic History: Reports: None - Infectious Disease History Infectious Disease History: Reports: Chicken Pox, MRSA - Past Surgical History Head Surgeries/Procedures: Reports: None HEENT Surgical History: Reports: Adenoidectomy, Tonsillectomy GI Surgical History: Reports: Appendectomy Female Surgical History: Reports: Section Musculoskeletal Surgical History: Reports: Carpal Tunnel Social & Family History - Family History Family Medical History: No Pertinent Family History - Caffeine Use Caffeine Use: Reports: Coffee, Soda, Tea - Recreational Drug Use Recreational Drug Use: No ED ROS GENERAL - Review of Systems Review Of Systems: Comprehensive ROS is negative, except as noted in HPI. ED EXAM, GENERAL - Physical Exam Exam: See Below Free Text/Narrative:: My physical exam is in the HPI Course - Vital Signs Last Recorded V/S: Last Vital Signs Temp 36.1 C 02/28/21 23:29 Pulse 110 H 02/28/21 23:29 Resp 18 02/28/21 23:29 BP 142/94 H 02/28/21 23:29 Pulse Ox 97 02/28/21 23:29 Departure - Departure Time of Disposition: 23:39 Disposition: Home, Self-Care 01 Condition: Good Clinical Impression: MRSA (methicillin resistant Staphylococcus aureus) - Discharge Information Instructions: MRSA Infection, Self-Care, Adult Referrals: Shwetha Lazo NP [Primary Care Provider] - Additional Instructions: [facility] - Primary Care [address] [place] [address] [id number] [address] [address] The following information is given to patients seen in the emergency department who are being discharged to home. This information is to outline your options for follow-up care. We provide all patients seen in our emergency department with a follow-up referral. The need for follow-up, as well as the timing and circumstances, are variable depending upon the specifics of your emergency department visit. If you don't have a primary care physician on staff, we will provide you with a referral. We always advise you to contact your personal physician following an emergency department visit to inform them of the circumstance of the visit and for follow-up with them and/or the need for any referrals to a consulting specialist. The emergency department will also refer you to a specialist when appropriate. This referral assures that you have the opportunity for follow-up care with a specialist. All of these measure are taken in an effort to provide you with optimal care, which includes your follow-up. Under all circumstances we always encourage you to contact your private physician who remains a resource for coordinating your care. When calling for follow-up care, please make the office aware that this follow-up is from your recent emergency room visit. If for any reason you are refused follow-up, please contact the Emergency Department at and asked to speak to the emergency department charge nurse. Sepsis Event Note (ED) - Evaluation Sepsis Screening Result: No Definite Risk - Focused Exam Vital Signs: Vital Signs Temp Pulse Resp BP Pulse Ox 02/28/21 23:29 36.1 C 110 H 18 142/94 H 97
== END 2021-02-28 23:50 | disposition home or self-care (01) ==
LOC: MW.ED 23:04
DX: A49.02 Methicillin resistant Staphylococcus aureus infection, unspecified site (principal); Z88.6 Allergy status to analgesic agent; Z88.5 Allergy status to narcotic agent; Z88.0 Allergy status to penicillin
CPT/HCPCS: 99282

== ENCOUNTER 2022-03-26 12:43 | Emergency (ER) | payer SELFPAY ==
[2022-03-26] MEDS ORDERED: Diazepam 2 MG Tab PO STA (13:11)
[2022-03-26] MEDS ORDERED: HYDROmorphone 2 MG/ML Syringe IM STA (13:11)
[2022-03-26] MEDS ORDERED: Dexamethasone 10 MG/ML SDV IM STA (13:12)
== END 2022-03-26 13:56 | disposition home or self-care (01) ==
LOC: MW.ED 12:43
DX: M54.9 Dorsalgia, unspecified (principal); F17.210 Nicotine dependence, cigarettes, uncomplicated; Z91.048 Other nonmedicinal substance allergy status; Z88.6 Allergy status to analgesic agent; Z91.040 Latex allergy status; Z88.0 Allergy status to penicillin; Z88.5 Allergy status to narcotic agent; Z90.49 Acquired absence of other specified parts of digestive tract
CPT/HCPCS: 96372; 99283; A9270; J1100; J1170

== ENCOUNTER 2022-06-18 20:55 | Emergency (ER) | payer SELFPAY ==
[2022-06-18] MEDS ORDERED: Sodium Chloride 0.9% 1,000 ML IV ONE (22:18)
[2022-06-18] MEDS ORDERED: Ondansetron 4 MG/2 ML SDV IVPUSH ONE (22:55)
[2022-06-18] MEDS ORDERED: HYDROmorphone 2 MG/ML Syringe IVPUSH ONE (22:55)
[2022-06-18 23:17] LABS: CARBON DIOXIDE,CO2 22.9 mmol/L (21.0-32.0); POTASSIUM,K 3.6 mmol/L (3.5-5.1)
[2022-06-19] MEDS ORDERED: Metoclopramide 10 MG/2 ML SDV IVPUSH ONE (00:44)
== END 2022-06-19 01:15 | disposition home or self-care (01) ==
LOC: MW.ED 20:55
DX: R10.32 Left lower quadrant pain (principal); Z91.048 Other nonmedicinal substance allergy status; Z88.6 Allergy status to analgesic agent; Z91.040 Latex allergy status; Z88.0 Allergy status to penicillin
CPT/HCPCS: 36415; 80053; 81003; 83690; 84703; 85025; 96361; 96374; 96375; 99284; J1170; J2405; J2765; J7030; 99283

== ENCOUNTER 2022-06-19 17:04 | Emergency (ER) | payer SELFPAY ==
[2022-06-19] MEDS ORDERED: Sodium Chloride 0.9% 1,000 ML IV ONE (19:10)
[2022-06-19] MEDS ORDERED: Haloperidol Lactate 5 MG/ML SDV IM ONE (19:12)
[2022-06-19 19:37] LABS: CARBON DIOXIDE,CO2 21.9 mmol/L (21.0-32.0); POTASSIUM,K 3.5 mmol/L (3.5-5.1)
[2022-06-19] MEDS ORDERED: HYDROmorphone 2 MG/ML Syringe IVPUSH ONE ×2 (19:59)
[2022-06-19] MEDS ORDERED: Ondansetron 4 MG/2 ML SDV IVPUSH ONE (19:59)
[2022-06-19] MEDS ORDERED: Iopamidol 755 MG/ML 500 ML Multipack Bottle IVPUSH STA (20:05)
[2022-06-19 20:54] LABS: CORONAVIRUS COVID-19 NAA NEGATIVE (NEGATIVE); INFLUENZA A NAA NEGATIVE (NEGATIVE); INFLUENZA B NAA NEGATIVE (NEGATIVE)
== END 2022-06-19 21:25 | disposition home or self-care (01) ==
LOC: MW.ED 17:04
DX: K52.9 Noninfective gastroenteritis and colitis, unspecified (principal); R11.2 Nausea with vomiting, unspecified; F17.210 Nicotine dependence, cigarettes, uncomplicated; Z20.822 Contact with and (suspected) exposure to COVID-19; Z91.048 Other nonmedicinal substance allergy status; Z91.040 Latex allergy status; Z88.0 Allergy status to penicillin; Z88.6 Allergy status to analgesic agent; Z88.5 Allergy status to narcotic agent
CPT/HCPCS: 0240U; 36415; 74177; 80053; 81001; 83690; 85025; 87045; 87046; 87324; 87328; 87329; 87449; 87899; 96361; 96372; 96374; 96375; 99284; J1170; J1630; J2405; J7030; Q9967

== ENCOUNTER 2022-06-24 04:28 | Emergency (ER) | payer SELFPAY ==
[2022-06-24] MEDS ORDERED: Morphine 4 MG/ML VIAL IVPUSH ONE (05:22)
[2022-06-24] MEDS ORDERED: Sodium Chloride 0.9% 2.5 ML Syringe FLUSH PRN (05:22)
[2022-06-24] MEDS ORDERED: Ondansetron 4 MG/2 ML SDV IVPUSH ONE (05:22)
[2022-06-24] MEDS ORDERED: Sodium Chloride 0.9% 10 ML Syringe FLUSH PRN (05:22)
[2022-06-24] MEDS ORDERED: Haloperidol Lactate 5 MG/ML SDV IM ONE (05:22)
[2022-06-24] MEDS ORDERED: Sodium Chloride 0.9% 1,000 ML IV ONE (05:22)
[2022-06-24] MEDS ORDERED: diphenhydrAMINE 50 MG/ML SDV IVPUSH ONE (05:22)
[2022-06-24 06:15] LABS: CARBON DIOXIDE,CO2 21.7 mmol/L (21.0-32.0); POTASSIUM,K 3.5 mmol/L (3.5-5.1)
== END 2022-06-24 07:48 | disposition home or self-care (01) ==
LOC: MW.ED 04:28
DX: K52.9 Noninfective gastroenteritis and colitis, unspecified (principal); N83.202 Unspecified ovarian cyst, left side; R11.2 Nausea with vomiting, unspecified; Z91.048 Other nonmedicinal substance allergy status; Z91.040 Latex allergy status; Z88.5 Allergy status to narcotic agent; Z88.6 Allergy status to analgesic agent
CPT/HCPCS: 36415; 76857; 80053; 81001; 81025; 83605; 83690; 83735; 84703; 85025; 96361; 96372; 96374; 96375; 99284; J1200; J1630; J2270; J2405; J3490; J7030

== ENCOUNTER 2022-07-18 15:19 | Emergency (ER) | payer SELFPAY ==
[2022-07-18] MEDS ORDERED: Ondansetron 4 MG/2 ML SDV IVPUSH ONE (20:47)
[2022-07-18] MEDS ORDERED: Sodium Chloride 0.9% 1,000 ML IV ONE (20:47)
[2022-07-18] MEDS ORDERED: Ketorolac 30 MG/ML SDV IVPUSH ONE (20:47)
[2022-07-18 21:23] LABS: CARBON DIOXIDE,CO2 25.7 mmol/L (21.0-32.0); POTASSIUM,K 3.8 mmol/L (3.5-5.1)
[2022-07-18 21:38] LABS: CORONAVIRUS COVID-19 NAA NEGATIVE (NEGATIVE); INFLUENZA A NAA NEGATIVE (NEGATIVE); INFLUENZA B NAA NEGATIVE (NEGATIVE)
[2022-07-18] MEDS ORDERED: Iopamidol 755 MG/ML 500 ML Multipack Bottle IVPUSH STA (21:52)
[2022-07-18] MEDS ORDERED: Acetaminophen 325 MG Tab PO ONE (23:21)
[2022-07-18] MEDS ORDERED: Ondansetron 4 MG Tab.DIS PO ONE (23:21)
[2022-07-18] MEDS ORDERED: Ibuprofen 400 MG Tab PO ONE (23:21)
== END 2022-07-18 23:45 | disposition home or self-care (01) ==
LOC: MW.ED 15:19
DX: R10.32 Left lower quadrant pain (principal); R19.7 Diarrhea, unspecified; D72.829 Elevated white blood cell count, unspecified; Z91.048 Other nonmedicinal substance allergy status; Z91.040 Latex allergy status; Z88.0 Allergy status to penicillin; Z88.5 Allergy status to narcotic agent; Z88.6 Allergy status to analgesic agent; Z20.822 Contact with and (suspected) exposure to COVID-19
CPT/HCPCS: 0240U; 36415; 74177; 80053; 81001; 83690; 84703; 85025; 87045; 87046; 87324; 87328; 87329; 87449; 87899; 96361; 96374; 96375; 99284; A9270; J1885; J2405; J7030; Q9967

== ENCOUNTER 2022-08-22 02:58 | Emergency (ER) | payer MEDICAID ==
[2022-08-22] MEDS ORDERED: Sodium Chloride 0.9% 2.5 ML Syringe FLUSH PRN (03:17)
[2022-08-22] MEDS ORDERED: Sodium Chloride 0.9% 10 ML Syringe FLUSH PRN (03:17)
[2022-08-22] MEDS ORDERED: Morphine 4 MG/ML Syringe IVPUSH ONE (03:17)
[2022-08-22] MEDS ORDERED: Ondansetron 4 MG/2 ML SDV IVPUSH ONE (03:17)
[2022-08-22] MEDS ORDERED: Sodium Chloride 0.9% 1,000 ML IV ONE (03:17)
[2022-08-22] MEDS ORDERED: HYDROmorphone 1 MG/ML Syringe IVPUSH ONE ×2 (03:35→06:06)
[2022-08-22 03:49] LABS: CARBON DIOXIDE,CO2 27.2 mmol/L (21.0-32.0); POTASSIUM,K 3.7 mmol/L (3.5-5.1)
[2022-08-22] MEDS ORDERED: Promethazine 25 MG/ML SDV IM ONE (04:45)
[2022-08-22] MEDS ORDERED: Iopamidol 755 MG/ML 500 ML Multipack Bottle IVPUSH STA (05:50)
== END 2022-08-22 09:10 | disposition home or self-care (01) ==
LOC: MW.ED 02:58
DX: N83.202 Unspecified ovarian cyst, left side (principal); F17.210 Nicotine dependence, cigarettes, uncomplicated; Z88.0 Allergy status to penicillin; Z88.5 Allergy status to narcotic agent; Z91.040 Latex allergy status; Z91.048 Other nonmedicinal substance allergy status
CPT/HCPCS: 36415; 74177; 76856; 80053; 81001; 84703; 85025; 96361; 96372; 96374; 96375; 96376; 99284; J1170; J2270; J2405; J2550; J3490; J7030; Q9967; 99282

== ENCOUNTER 2022-09-06 15:43 | Emergency (ER) | payer MEDICAID ==
[2022-09-06 18:15] LABS: BLOOD UREA NITROGEN,BUN 9 mg/dL (7.0-18.0); CARBON DIOXIDE,CO2 27.7 mmol/L (21.0-32.0); CHLORIDE,CL 105 mmol/L (98-107); GLUCOSE RANDOM 93 mg/dL (74-106); LIPASE 92 U/L (73-393); POTASSIUM,K 3.6 mmol/L (3.5-5.1); SODIUM,NA 142 mmol/L (136-145)
[2022-09-06] MEDS: Sodium Chloride 0.9% 1,000 ML IV ONE (18:17)
[2022-09-06] MEDS: Morphine 2 MG/ML SYRINGE IVPUSH ONE (18:21)
[2022-09-06 18:26] LABS: ESTIMATED GFR 86 mL/min (>60)
[2022-09-06] MEDS: Morphine 2 MG/ML SYRINGE ONE (18:26)
[2022-09-06] MEDS: Ketorolac 30 MG/ML SDV IVPUSH ONE (18:26)
== END 2022-09-06 19:40 | disposition left against medical advice (07) ==
LOC: MW.ED 15:43
DX: R10.2 Pelvic and perineal pain (principal); Z91.048 Other nonmedicinal substance allergy status; Z88.1 Allergy status to other antibiotic agents; Z91.040 Latex allergy status; Z88.0 Allergy status to penicillin; Z88.5 Allergy status to narcotic agent; Z79.899 Other long term (current) drug therapy; Z90.49 Acquired absence of other specified parts of digestive tract
CPT/HCPCS: 36415; 76830; 80053; 83690; 84703; 85025; 96361; 96374; 99283; J2270; J7030; 99284

== ENCOUNTER 2022-09-07 23:10 | Emergency (ER) | payer MEDICAID ==
[2022-09-08] MEDS: HYDROmorphone 1 MG/ML Syringe IM ONE (00:09)
[2022-09-08] MEDS: Ondansetron 4 MG Tab.DIS PO ONE (00:11)
== END 2022-09-08 00:27 | disposition home or self-care (01) ==
LOC: MW.ED 23:10
DX: N83.202 Unspecified ovarian cyst, left side (principal); F17.210 Nicotine dependence, cigarettes, uncomplicated; Z88.0 Allergy status to penicillin; Z91.040 Latex allergy status; Z91.048 Other nonmedicinal substance allergy status; Z88.5 Allergy status to narcotic agent
CPT/HCPCS: 96372; 99283; A9270; J1170

== ENCOUNTER 2022-12-11 01:31 | Emergency (ER) | payer MEDICAID ==
[2022-12-11] MEDS ORDERED: HYDROmorphone 1 MG/ML Syringe IM ONE (01:53)
== END 2022-12-11 03:53 | disposition home or self-care (01) ==
LOC: MW.ED 01:31
DX: M54.50 Low back pain, unspecified (principal); E66.9 Obesity, unspecified; Z91.048 Other nonmedicinal substance allergy status; Z88.0 Allergy status to penicillin; Z88.5 Allergy status to narcotic agent; Z88.8 Allergy status to other drugs, medicaments and biological substances; Z68.32 Body mass index [BMI] 32.0-32.9, adult; W01.0XXA Fall on same level from slipping, tripping and stumbling without subsequent striking against object, initial encounter
CPT/HCPCS: 72100; 96372; 99283; J1170

== ENCOUNTER 2023-06-29 05:39 | Emergency (ER) | payer MEDICAID ==
[2023-06-29] MEDS ORDERED: Acetaminophen/HYDROcodone 325-5 MG Tab PO ONE (06:00)
== END 2023-06-29 06:17 | disposition home or self-care (01) ==
LOC: MW.ED 05:39
DX: K08.89 Other specified disorders of teeth and supporting structures (principal); E66.9 Obesity, unspecified; Z88.0 Allergy status to penicillin; Z88.5 Allergy status to narcotic agent; Z91.040 Latex allergy status; Z91.048 Other nonmedicinal substance allergy status
CPT/HCPCS: 99282; A9270; 99283

== ENCOUNTER 2023-07-28 00:06 | Emergency (ER) | payer MEDICAID ==
[2023-07-28] MEDS ORDERED: Acetaminophen/HYDROcodone 325-5 MG Tab PO ONE (03:24)
[2023-07-28] MEDS ORDERED: Ibuprofen 600 MG Tab PO ONE (03:24)
== END 2023-07-28 04:00 | disposition home or self-care (01) ==
LOC: MW.ED 00:06
DX: M79.631 Pain in right forearm (principal); F17.210 Nicotine dependence, cigarettes, uncomplicated; E66.9 Obesity, unspecified; Z68.33 Body mass index [BMI] 33.0-33.9, adult; Z88.1 Allergy status to other antibiotic agents; Z88.0 Allergy status to penicillin; Z91.041 Radiographic dye allergy status; Z91.048 Other nonmedicinal substance allergy status; Z88.5 Allergy status to narcotic agent; Z90.49 Acquired absence of other specified parts of digestive tract
CPT/HCPCS: 73090; 99283; A9270

== ENCOUNTER 2023-11-01 05:22 | Emergency (ER) | payer MEDICAID ==
[2023-11-01] MEDS ORDERED: Ketamine 500 mg/10 ML MDV IV ONE (05:41)
== END 2023-11-01 07:03 | disposition left against medical advice (07) ==
LOC: MW.ED 05:22
DX: M54.50 Low back pain, unspecified (principal); Z90.49 Acquired absence of other specified parts of digestive tract; Z91.048 Other nonmedicinal substance allergy status; Z88.0 Allergy status to penicillin; Z88.6 Allergy status to analgesic agent; Z91.040 Latex allergy status
CPT/HCPCS: 72100; 96374; 99283; J3490

== ENCOUNTER 2025-01-05 07:46 | Emergency (ER) | payer MEDICAID ==
[2025-01-05] MEDS ORDERED: Naloxone 0.4 MG/ML SDV IVPUSH PRN (08:18)
[2025-01-05] MEDS: HYDROmorphone 1 MG/ML Syringe IM ONE (08:24)
== END 2025-01-05 09:20 | disposition home or self-care (01) ==
LOC: MW.ED 07:46
DX: M25.561 Pain in right knee (principal); F17.210 Nicotine dependence, cigarettes, uncomplicated; Z91.048 Other nonmedicinal substance allergy status; Z91.040 Latex allergy status; Z88.5 Allergy status to narcotic agent; Z88.0 Allergy status to penicillin; Z79.899 Other long term (current) drug therapy
CPT/HCPCS: 96372; 99283; J1171

== ENCOUNTER 2025-01-26 20:20 | Emergency (ER) | payer MEDICAID ==
[2025-01-26] MEDS: Acetaminophen/HYDROcodone 325-5 MG Tab PO ONE (20:53)
== END 2025-01-26 21:14 | disposition home or self-care (01) ==
LOC: MW.ED 20:20
DX: M25.561 Pain in right knee (principal); F17.210 Nicotine dependence, cigarettes, uncomplicated; Z88.0 Allergy status to penicillin; Z91.040 Latex allergy status; Z88.5 Allergy status to narcotic agent; Z88.8 Allergy status to other drugs, medicaments and biological substances; Z79.899 Other long term (current) drug therapy; Z90.49 Acquired absence of other specified parts of digestive tract
CPT/HCPCS: 99283; A9270

== ENCOUNTER 2025-02-23 00:27 | Emergency (ER) | payer MEDICAID ==
[2025-02-23] MEDS: LORazepam 1 MG Tab PO ONE (00:47)
[2025-02-23] MEDS: Acetaminophen 325 MG Tab PO ONE (01:04)
== END 2025-02-23 02:39 | disposition home or self-care (01) ==
LOC: MW.ED 00:27
DX: M25.561 Pain in right knee (principal); Z75.8 Other problems related to medical facilities and other health care; Z91.048 Other nonmedicinal substance allergy status; Z88.0 Allergy status to penicillin; Z91.040 Latex allergy status; Z88.8 Allergy status to other drugs, medicaments and biological substances; Z79.899 Other long term (current) drug therapy
CPT/HCPCS: 73562; 99283; A9270

== ENCOUNTER 2025-03-02 13:38 | Emergency (ER) | payer MEDICAID ==
[2025-03-02] MEDS: oxyCODONE 5 MG Tab PO ONE (13:55)
== END 2025-03-02 14:12 | disposition home or self-care (01) ==
LOC: MW.ED 13:38
DX: Z76.0 Encounter for issue of repeat prescription (principal); F17.210 Nicotine dependence, cigarettes, uncomplicated; Z91.048 Other nonmedicinal substance allergy status; Z88.5 Allergy status to narcotic agent; Z91.040 Latex allergy status; Z88.0 Allergy status to penicillin; Z79.899 Other long term (current) drug therapy
CPT/HCPCS: 99283; A9270; 99284

== ENCOUNTER 2025-03-05 03:36 | Emergency (ER) | payer MEDICAID ==
[2025-03-05] MEDS: Ibuprofen 600 MG Tab PO ONE (04:00)
[2025-03-05] MEDS: Diphtheria,Pertussis(Acell),Tetanus Vaccine 0.5 ML Syringe IM ONE (04:00)
[2025-03-05] MEDS: Acetaminophen 500 MG Tab PO ONE (04:00)
[2025-03-05] MEDS: Bacitracin Oint 1 GM U/D Packet TOP ONE (04:01)
== END 2025-03-05 04:49 | disposition home or self-care (01) ==
LOC: MW.ED 03:36
DX: S63.502A Unspecified sprain of left wrist, initial encounter (principal); S60.222A Contusion of left hand, initial encounter; R45.1 Restlessness and agitation; Z90.49 Acquired absence of other specified parts of digestive tract; Z88.0 Allergy status to penicillin; Z88.5 Allergy status to narcotic agent; Z88.8 Allergy status to other drugs, medicaments and biological substances; Z91.048 Other nonmedicinal substance allergy status; Z91.040 Latex allergy status; Z79.899 Other long term (current) drug therapy; V00.841A Fall from standing electric scooter, initial encounter; Z23 Encounter for immunization
CPT/HCPCS: 73110-26-LT; 73110-LT; 73130-26-LT; 73130-LT; 90471; 90715; 99283-25; A9270-GY

== ENCOUNTER 2025-05-01 06:52 | Emergency (ER) | payer MEDICAID ==
[2025-05-01 07:45] LABS: BASOPHILS ABSOLUTE AUTO 0.05 K/uL (0.00-0.20); BASOPHILS PERCENT AUTO 0.4 % (0.0-1.0); HEMATOCRIT 42.7 % (37.0-47.0); HEMOGLOBIN 14.4 g/dL (12.0-16.0); IMMATURE GRAN ABSOLUTE AUTO 0.03 K/uL (0.00-0.05); IMMATURE GRAN PERCENT AUTO 0.2 % (0.0-0.4); LYMPHOCYTES ABSOLUTE AUTO 1.45 K/uL (1.00-4.80); LYMPHOCYTES PERCENT AUTO 11.2 % (24.0-44.0); MEAN CORPUSCULAR HEMOGLOBIN 28.1 pg (28.0-32.0); MEAN CORPUSCULAR HGB CONC 33.7 g/dL (32.0-36.0); MEAN CORPUSCULAR VOLUME 83.4 fL (83.0-99.0); MEAN PLATELET VOLUME 9.8 fL (9.4-12.3); MONOCYTES ABSOLUTE AUTO 0.13 K/uL (0.00-0.80); NEUTROPHILS ABSOLUTE AUTO 11.32 K/uL (1.80-7.70); NEUTROPHILS PERCENT AUTO 87.2 % (41.0-71.0); PLATELET COUNT,PLT 360 K/uL (150-400); RED BLOOD CELL COUNT 5.12 M/uL (4.10-5.30); WHITE BLOOD CELL COUNT,WBC 12.98 K/uL (3.9-11.3)
[2025-05-01 08:04] LABS: ALBUMIN 3.7 g/dL (3.4-5.0); BILIRUBIN TOTAL 0.3 mg/dL (0.2-1.0); C-REACTIVE PROTEIN 3.35 mg/dL (<0.3); CALCIUM 9.3 mg/dL (8.5-10.1); CARBON DIOXIDE,CO2 26.6 mmol/L (21.0-32.0); EST CRCL DRUG DOSING (CG) 80.5 mL/min; POTASSIUM,K 4.5 mmol/L (3.5-5.1); PROTEIN TOTAL,TP 7.4 g/dL (6.4-8.2)
[2025-05-01] MEDS: Lidocaine 1% 10 ML MDV INFILT ONE (08:29)
[2025-05-01] MEDS: Acetaminophen 500 MG Tab PO ONE (09:04)
[2025-05-01] MEDS: Ondansetron 4 MG Tab.DIS PO ONE (09:04)
[2025-05-01] MEDS: oxyCODONE 5 MG Tab PO ONE (09:05)
[2025-05-01 09:42] LABS: BODY FLUID TYPE SYN
[2025-05-01 09:52] LABS: MONONUCLEAR, BODY FLUID 87.4 %; POLYMORPHONUCLEAR, BODY FLUID 12.6 %
[2025-05-01 10:01] LABS: RBC,BODY FLUID < 3000 /uL; WBC BODY FLUID 135 /uL
[2025-05-01 10:02] LABS: APPEARANCE,BODY FLUID CLEAR; COLOR,BODY FLUID YELLOW
[2025-05-01 10:30] LABS: GLUCOSE,BODY FLUID 137 mg/dL; PROTEIN,BODY FLUID 4.5 g/dL
== END 2025-05-01 10:38 | disposition home or self-care (01) ==
LOC: MW.ED 06:52
DX: M17.11 Unilateral primary osteoarthritis, right knee (principal); Z91.048 Other nonmedicinal substance allergy status; Z88.5 Allergy status to narcotic agent; Z91.040 Latex allergy status; Z88.0 Allergy status to penicillin; Z79.899 Other long term (current) drug therapy; Z92.241 Personal history of systemic steroid therapy
CPT/HCPCS: 36415; 73562; 80053; 82945; 84157; 85025; 85652; 86140; 87070; 87075; 87205; 89050; 89060; 99283; A9270; J2003; 20610; 99284

== ENCOUNTER 2025-05-15 08:46 | Emergency (ER) | payer MEDICAID | END 2025-05-15 14:28 | LOC: MW.ED 08:46 | DX: R45.851 Suicidal ideations (principal); F32.A Depression, unspecified; Z79.899 Other long term (current) drug therapy; Z88.0 Allergy status to penicillin; Z88.8 Allergy status to other drugs, medicaments and biological substances; Z91.040 Latex allergy status; Z91.048 Other nonmedicinal substance allergy status; Z90.49 Acquired absence of other specified parts of digestive tract | CPT/HCPCS: 99284; 99285 ==

== ENCOUNTER 2025-06-25 06:48 | Emergency (ER) | payer MEDICAID | END 2025-06-25 08:42 | disposition home or self-care (01) | LOC: MW.ED 06:48 | DX: M54.2 Cervicalgia (principal) | CPT/HCPCS: 70450; 72125; 99283; A9270 ==

== ENCOUNTER 2025-07-18 10:44 | Emergency (ER) | payer MEDICAID | END 2025-07-18 11:55 | disposition left against medical advice (07) | LOC: MW.ED 10:44 | DX: Z53.21 Procedure and treatment not carried out due to patient leaving prior to being seen by health care provider (principal) ==

== ENCOUNTER 2025-07-18 19:25 | Emergency (ER) | payer MEDICAID ==
[2025-07-18] MEDS: Acetaminophen/HYDROcodone 325-10 MG Tab PO STA (19:37)
== END 2025-07-18 20:56 | disposition home or self-care (01) ==
LOC: MW.ED 19:25
DX: M23.91 Unspecified internal derangement of right knee (principal); Z79.899 Other long term (current) drug therapy; Z88.8 Allergy status to other drugs, medicaments and biological substances; Z88.0 Allergy status to penicillin; Z91.040 Latex allergy status; Z90.49 Acquired absence of other specified parts of digestive tract
CPT/HCPCS: 73562; 99283; A9270; 99284

== ENCOUNTER 2025-09-09 07:11 | Emergency (ER) | payer MEDICAID | END 2025-09-09 08:13 | disposition home or self-care (01) | LOC: MW.ED 07:11 | DX: M25.562 Pain in left knee (principal); Z79.899 Other long term (current) drug therapy; Z88.5 Allergy status to narcotic agent; Z88.6 Allergy status to analgesic agent; Z91.048 Other nonmedicinal substance allergy status; Z91.040 Latex allergy status; Z88.0 Allergy status to penicillin | CPT/HCPCS: 99283; A9270; 99284 ==